=== PATIENT | female | born 1965 | race Caucasian/White ===

== ENCOUNTER 2016-07-01 15:57 | Emergency (ER) | payer SELFPAY ==
[2016-07-01 18:27] VITALS: BP 129/91
[2016-07-01] MEDS ORDERED: IBUPROFEN 600 MG TAB PO ONE (18:45)
== END 2016-07-01 19:37 | disposition home or self-care (01) ==
LOC: ER 16:05
DX: S52.502A Unspecified fracture of the lower end of left radius, initial encounter for closed fracture (principal); S52.615A Nondisplaced fracture of left ulna styloid process, initial encounter for closed fracture; F17.210 Nicotine dependence, cigarettes, uncomplicated; Z88.6 Allergy status to analgesic agent; Z88.1 Allergy status to other antibiotic agents; V49.49XA Driver injured in collision with other motor vehicles in traffic accident, initial encounter; Y93.89 Activity, other specified; Y92.410 Unspecified street and highway as the place of occurrence of the external cause; Y99.8 Other external cause status
CPT/HCPCS: 29125; 73110; 73130